=== PATIENT | male | born 1975 | race Caucasian/White ===

== ENCOUNTER 2017-08-21 02:23 | Emergency (ER) | payer BC ==
--- NOTE | 2017-08-21 02:36 | Emergency Department Record ---
History of Present Illness - General Chief complaint: Rash Stated complaint: RASH Time Seen by Provider: 08/21/17 02:24 Source: Patient Mode of Arrival: Ambulatory Limitations: No limitations - History of Present Illness Initial comments: 42 yo male presents to ED for evaluation of a rash to the inner thighs for the past several weeks. Patient reports that he has been taking Lamisil for his symptoms without improvement prescribed by his PCP. Patient denies fevers, chills, or recent illness. Patient does report that he has been taking Methotrexate for recent RA diagnosis for the past several weeks as well. MD complaint: Rash Onset/Timin -: Week(s) Location: LLE, RLE Severity: Moderate Quality: Burning Consistency: Constant Improves with: None Worsens with: None Context: None Associated symptoms: Denies other symptoms Treatments Prior to Arrival: None - Related Data Previous Rx's Medication Instructions Recorded Fluconazole [Diflucan] 150 mg PO ONCE #3 tab 08/21/17 Magic Butt Cream 1 apply TOP ASDIR #30 gm 08/21/17 Allergies Allergy/AdvReac Type Severity Reaction Status Date / Time No Known Drug Allergies Allergy Verified 08/21/17 02:31 Review of Systems Constitutional: Denies: Chills, Fever, Malaise Eyes: Denies: Eye discharge, Eye pain ENT: Denies: Congestion, Ear pain, Epistaxis Respiratory: Denies: Cough, Dyspnea Cardiovascular: Denies: Chest pain, Dyspnea on exertion Endocrine: Denies: Fatigue, Heat or cold intolerance Gastrointestinal: Denies: Abdominal pain, Vomiting Genitourinary: Denies: Incontinence, Retention Musculoskeletal: Denies: Arthralgia, Back pain, Gout, Joint swelling Skin: Reports: Rash. Denies: Bruising, Change in color Neurological: Denies: Abnormal gait, Confusion, Headache, Seizure Psychiatric: Denies: Anxiety Hematological/Lymphatic: Denies: Anemia, Blood Clots Past Medical History - SOCIAL HISTORY Smoking Status: Never smoker - RESPIRATORY Hx Respiratory Disorders: Yes Comment:: seasonal allergies - CARDIOVASCULAR Hx Cardio Disorders: No Hx Edema: Yes (left knee) - NEURO Hx Neuro Disorders: No Hx Dizziness: Yes (lightheaded sometimes) Hx Weakness: Yes (left knee gives out sometimes) - GI Hx GI Disorders: No Hx Wt Loss/Wt Gain: Yes (from 241 to 233 in 2 wks) - Hx Genitourinary Disorders: No Hx Bladder Problem: Yes (frequency & up at nite) - ENDOCRINE Hx Endocrine Disorders: No - MUSCULOSKELETAL Hx Musculoskeletal Disorders: Yes Hx Gout: Yes - PSYCH Hx Psych Problems: No - HEMATOLOGY/ONCOLOGY Hx Hematology/Oncology Disorders: No Family Medical History Family Hx Comment (NOT TO BE USED IN PLACE OF ITEMS BELOW): mom w/Parkinson's Hx Alcohol Use: Brother/Sister Hx Cancer: Mother Hx HTN: Father Hx Resp Disorders: Mother Physical Exam - General General Appearance: Alert, Oriented x3, Cooperative, No acute distress Limitations: No limitations - Head Head exam: Atraumatic, Normocephalic, Normal inspection Head exam detail: negative: Abrasion, Contusion, Rucker's sign, General tenderness, Hematoma, Laceration - Eye Eye exam: Normal appearance. negative: Conjunctival injection, Periorbital swelling, Periorbital tenderness, Scleral icterus - ENT Ear exam: negative: Auricular hematoma, Auricular trauma Nasal Exam: negative: Active bleeding, Discharge, Dried blood, Foreign body Mouth exam: negative: Drooling, Laceration, Tongue elevation - Neck Neck exam: Normal inspection. negative: Meningismus, Tenderness - Respiratory Respiratory exam: Normal lung sounds bilaterally. negative: Rales, Respiratory distress, Rhonchi, Stridor - Cardiovascular Cardiovascular Exam: Regular rate, Normal rhythm, Normal heart sounds - GI/Abdominal GI/Abdominal exam: Soft. negative: Rebound, Rigid, Tenderness - Rectal Rectal exam: Deferred - exam: Deferred - Extremities Extremities exam: Other (Confluent, thickened, dry, erythematous rash to the inner thighs bilaterally. Not warm to touch.). negative: Calf tenderness, Pedal edema, Tenderness - Back Back exam: Denies: CVA tenderness (R), CVA tenderness (L) - Neurological Neurological exam: Alert, Normal gait, Oriented X3 - Psychiatric Psychiatric exam: Normal affect, Normal mood - Skin Skin exam: Erythema Type of lesion: Rash Distribution of rash: RLE, LLE Description of rash: Confluent Course - Reevaluation(s) Reevaluation #1: 08/21/17 02:41 Rash appears c/w yeast dermatitis vs. possible reaction to methtrexate vs. possible eczema. Will treat with magic but cream (will improve yeast/eczema symptoms) with instructions to follow-up with his PCP in 3-5 days as directed. Disposition Disposition: Discharge Clinical Impression: Dermatitis Disposition: Home, Self-Care Condition: (2) Stable Instructions: Skin Yeast Infection (ED) Additional Instructions: Return to ED if your symptoms worsen or if you have any concerns. Magic butt paste and Diflucan as directed. Follow-up with your family doctor in 3-5 days as directed. Prescriptions: Fluconazole [Diflucan] 150 mg PO ONCE #3 tab Magic Butt Cream 1 apply TOP ASDIR #30 gm Forms: Patient Portal Access Time of Disposition: 02:35 Quality - Quality Measures Quality Measures: N/A - Blood Pressure Screening Does Patient Have Any of the Following: No Blood Pressure Classification: Hypertensive Reading Systolic Measurement: 125 Diastolic Measurement: 94 Screening for High Blood Pressure: < First Hypertensive BP, F/U Documented > [ [id number]] First Hypertensive Follow-up Interventions: Referral to alternative/primary care provider.
== END 2017-08-21 02:48 | disposition home or self-care (01) ==
LOC: ER 02:23
DX: L30.9 Dermatitis, unspecified (principal)
CPT/HCPCS: 99282